=== PATIENT | male | born 1980 | race Caucasian/White ===

== ENCOUNTER 2017-01-10 01:10 | Emergency (ER) | payer OTHER ==
[~2017-01-10] VITALS: Ht 172.7 cm; Wt 77.1 kg
[~2017-01-10 01:10] MED LIST: ACET-3457; PHEN100C4 PO; [UNRECOGNIZED DRUG - OTHER]
[2017-01-10 01:14] VITALS: BP 146/98
--- NOTE | 2017-01-10 01:19 | NUR ---
PT TAKEN TO BED 4
--- NOTE | 2017-01-10 01:26 | NUR ---
36 Y/O M W/C/O TOOTH ABSCESS STARTED TODAY IN THE MORNING, AND FOR MEDICATION REFILL TEGRETOL AND NEURONTIN. PT STATES HASNT TAKEN MEDS FOR SEIZURE SINCE 2 YEARS AGO. ER MADE AWARE.
--- NOTE | 2017-01-10 01:33 | NUR ---
Dr. Quintero evaluating patient at bedside.
[2017-01-10] MEDS ORDERED: HYDROcodone/APAP 10/325 MG 1 TAB TAB PO ONE (01:40)
[2017-01-10] MEDS ORDERED: AMOXICILLIN 500 MG CAP PO ONE (01:40)
[2017-01-10 02:00] VITALS: BP 146/98
--- NOTE | 2017-01-10 02:00 | NUR ---
Patient discharged with v/s stable. Written and verbal after care instructions given and explained. Patient alert, oriented and verbalized understanding of instructions. Ambulatory with steady gait. All questions addressed prior to discharge. ID band removed. Patient advised to follow up with PMD, A PHONE # FOR CLINIC PROVIDED. Rx of given AMOXICILLIN,NORCO,TEGRETOL AND NEURONTIN. Patient educated on indication of medication including possible reaction and side effects. Opportunity to ask questions provided and answered.
== END 2017-01-10 02:00 | disposition home or self-care (01) ==
LOC: MED 01:10
DX: K05.219 Aggressive periodontitis, localized, unspecified severity (principal); R03.0 Elevated blood-pressure reading, without diagnosis of hypertension; Z88.8 Allergy status to other drugs, medicaments and biological substances; Z79.899 Other long term (current) drug therapy
CPT/HCPCS: 99283

== ENCOUNTER 2017-06-23 00:20 | Emergency (ER) | payer OTHER ==
[~2017-06-23] VITALS: Ht 172.7 cm; Wt 77.6 kg
[2017-06-23 00:37] VITALS: BP 161/113
--- NOTE | 2017-06-23 00:45 | NUR ---
PT AMBULATED TO ER BED 12
--- NOTE | 2017-06-23 00:48 | NUR ---
37/M CAME IN W C/O 03/08 SHARP PAIN TO LT SIDE OF BODY, SHOOTING PAIN TO LT LEG X 1 WEEK. REPORTS HX OF SCIATICA, NO RX. DENIES INJURY/TRAUMA, +PMSC TO LT LEG. PT STATES NO PCP AT THIS TIME PMH: SCIATICA, SEIZURE, RX: TEGRETOL, NEURONTIN
--- NOTE | 2017-06-23 01:00 | NUR ---
PT EVAL BY KEISHA DIAZ
[2017-06-23] MEDS ORDERED: CYCLOBENZAPRINE 10 MG TAB PO ONE (01:05)
[2017-06-23] MEDS ORDERED: KETOROLAC 30 MG/ML VIAL IM ONE (01:05)
[2017-06-23] MEDS ORDERED: hydrALAZINE 25 MG TAB PO SCH (01:10)
--- NOTE | 2017-06-23 01:23 | NUR ---
PT SENT TO XRAY WITH TECH VIA W/C AAOX4
[2017-06-23] MEDS ORDERED: KETOROLAC 30 MG/ML VIAL ONE (02:00)
[2017-06-23] MEDS ORDERED: CYCLOBENZAPRINE 10 MG TAB ONE (02:01)
[2017-06-23] MEDS ORDERED: hydrALAZINE 25 MG TAB ONE (02:55)
--- NOTE | 2017-06-23 03:12 | NUR ---
Patient discharged with v/s stable. Written and verbal after care instructions given and explained. Patient alert, oriented and verbalized understanding of instructions. Ambulatory with steady gait. All questions addressed prior to discharge. ID band removed. Patient advised to follow up with PMD. Rx of FLEXIRIL AND NAPROXEN given. Patient educated on indication of medication including possible reaction and side effects. Opportunity to ask questions provided and answered.
[2017-06-23 03:17] VITALS: BP 148/92
== END 2017-06-23 03:12 | disposition home or self-care (01) ==
LOC: MED 00:20
DX: M51.36 Other intervertebral disc degeneration, lumbar region (principal); M46.06 Spinal enthesopathy, lumbar region; F17.210 Nicotine dependence, cigarettes, uncomplicated; Z79.899 Other long term (current) drug therapy; Z88.8 Allergy status to other drugs, medicaments and biological substances
CPT/HCPCS: 72110; 96372; 99284; J1885

== ENCOUNTER 2017-07-11 18:28 | Emergency (ER) | payer OTHER ==
[~2017-07-11] VITALS: Ht 172.7 cm; Wt 74.8 kg
[2017-07-11 19:05] VITALS: BP 127/87
--- NOTE | 2017-07-11 19:20 | NUR ---
patient called to bed no answer.
--- NOTE | 2017-07-11 19:25 | NUR ---
CAlled the second time no response
--- NOTE | 2017-07-11 19:30 | NUR ---
PATIENT CALLED [facility] THIRD TIME, NO RESPONSE.PATIENT LEFT WITHOUT BEING SEEN BY DR. ORDAZ. NO FURTHER CARE PROVIDED FOR PATIENT.
== END 2017-07-11 19:30 | disposition left against medical advice (07) ==
LOC: MED 18:28
DX: M54.5 Low back pain (principal); Z53.21 Procedure and treatment not carried out due to patient leaving prior to being seen by health care provider

== ENCOUNTER 2018-01-24 20:42 | Emergency (ER) | payer MEDICAID, OTHER ==
[~2018-01-24] VITALS: Ht 172.7 cm; Wt 75.3 kg
[2018-01-24 21:00] VITALS: BP 134/75
[2018-01-24] MEDS: CLINDAMYCIN 900 MG in DEXTROSE 5% 100 ML IV ONE (21:32)
[2018-01-24] MEDS: fentaNYL 0.05 MG/ML VIAL IVP ONE (21:32)
[2018-01-24] MEDS ORDERED: CLINDAMYCIN 900 MG/6 ML VIAL IV ONE (21:33)
[2018-01-24] MEDS: NACL 0.9% 1,000 ML IV ONE (21:33)
[2018-01-24] MEDS ORDERED: MIDAZOLAM 2 MG/2 ML VIAL ONE (22:15)
[2018-01-24] MEDS: MIDAZOLAM 2 MG/2 ML VIAL IVP ONE (22:25)
[2018-01-24] MEDS: KETAMINE 500 MG/5 ML VIAL IVP ONE (22:28)
[2018-01-25] VITALS: BP 155/89
== END 2018-01-25 01:20 | disposition short-term general hospital (02) ==
LOC: MED 20:42
DX: S62.621A Displaced fracture of middle phalanx of left index finger, initial encounter for closed fracture (principal); S60.451A Superficial foreign body of left index finger, initial encounter; F17.210 Nicotine dependence, cigarettes, uncomplicated; Z88.8 Allergy status to other drugs, medicaments and biological substances; Z79.899 Other long term (current) drug therapy; W23.0XXA Caught, crushed, jammed, or pinched between moving objects, initial encounter; Y93.89 Activity, other specified; Y92.89 Other specified places as the place of occurrence of the external cause; Y99.8 Other external cause status
CPT/HCPCS: 26742; 73140; 96365; 96375; 99152; 99285; J2250; J3010; J3490; J7030; Q0092

== ENCOUNTER 2020-04-23 22:58 | Emergency (ER) | payer MEDICAID ==
[~2020-04-23] VITALS: Ht 172.7 cm; Wt 77.1 kg
[2020-04-23 22:58] VITALS: BP 166/99
[~2020-04-23 22:58] MED LIST changes: -ACET-3457; +GABA400C PO; -PHEN100C4 PO; -[UNRECOGNIZED DRUG - OTHER]
[2020-04-23 23:16] VITALS: BP 166/99
--- NOTE | 2020-04-23 23:16 | NUR ---
PATIENT LEFT WITHOUT BEING SEEN BY DR. GUEVARA. NO FURTHER CARE PROVIDED FOR PATIENT.
== END 2020-04-23 23:16 | disposition left against medical advice (07) ==
LOC: MED 22:58
DX: R10.11 Right upper quadrant pain (principal); Z53.21 Procedure and treatment not carried out due to patient leaving prior to being seen by health care provider

== ENCOUNTER 2022-01-26 21:05 | Emergency (ER) | payer MEDICAID, OTHER ==
[~2022-01-26] VITALS: Ht 172.7 cm; Wt 72.6 kg
[2022-01-26 21:07] VITALS: BP 142/88
--- NOTE | 2022-01-26 21:07 | NUR ---
PT [facility] BLS. TAKEN TO BED 2
[2022-01-26] MEDS ORDERED: NACL 0.9% 1,000 ML IV SCH (21:25)
[2022-01-26] MEDS ORDERED: PANTOPRAZOLE 40 MG INJ VIAL IVP ONE (21:25)
--- NOTE | 2022-01-26 21:40 | NUR ---
RECEIVED PT AT THIS TIME AFTER BEING BIBA FROM HOME C/O BLOOD IN STOOL x1 MONTH, PROGRESSIVELY WORSE IN THE LAST 2 DAYS. LBM x2 HOURS AGO. +EPIGASTRIC PAIN. PT STATES HE WAS SEEN AT [facility] [place] 3 WEEKS AGO BUT LEFT WITHOUT RECEIVING TREATMENT. MEDHX- DENIES ALLX- PHENYTOIN
--- NOTE | 2022-01-26 21:44 | NUR ---
PT WITH POOR VENOUS ACCESS. ATTEMPT X 2 THEN PT REQUESTS NO IV OR LAB DRAW AT THIS TIME. IS VERY ANXIOUS
--- NOTE | 2022-01-26 22:38 | NUR ---
Dr. Proctor examining patient.
--- NOTE | 2022-01-26 22:39 | NUR ---
PT REQUESTING TO LEAVE
[2022-01-26 22:40] VITALS: BP 142/88
--- NOTE | 2022-01-28 15:00 | NUR ---
LATE ENTRY. DR HOYT RECEIVED RAD DISCREPANCY. PT LEFT AMA BUT DR HOYT WANTED TO INFORM HIM THAT HIS CHEST XRAY SHOWED PNA AND TO FOLLOW UP WITH PCP. FORM PLACED IN BINDER.
== END 2022-01-26 22:39 | disposition left against medical advice (07) ==
LOC: MED 21:05
DX: R10.9 Unspecified abdominal pain (principal); Z79.899 Other long term (current) drug therapy; Z88.8 Allergy status to other drugs, medicaments and biological substances
CPT/HCPCS: 71045; 93005; 99283